=== PATIENT | male | born 1945 | race Two or more races ===

== ENCOUNTER 2017-11-04 10:24 | Inpatient (IN) | payer OTHER ==
[~2017-11-04] VITALS: Ht 167.6 cm; Wt 71.3 kg
[2017-11-04 11:24] LABS: HEMATOCRIT 25.2 % (38.0-50.0); HEMOGLOBIN 8.3 G/DL (12.5-16.6); MCH 29.4 PG (29.0-34.0); MCHC 32.9 G/DL (30.0-36.0); MCV 89.4 FL (86-99); PLATELET COUNT 153 K/uL (156-360); RBC DIS.WIDTH-CV 15.3 % (11.8-14.6); RBC DIS.WIDTH-SD 48.2 % (39-53); RED BLOOD COUNT 2.82 M/uL (4.00-5.50); WHITE BLOOD COUNT 9.9 K/uL (4.1-10.2)
[2017-11-04 11:35] LABS: ALBUMIN 2.7 g/dL (3.2-4.8)
[2017-11-04 11:36] LABS: CHLORIDE 104 mEq/L (99-109); POTASSIUM 3.7 mEq/L (3.7-5.4); SODIUM 135 mEq/L (136-147)
[2017-11-04 11:38] LABS: GLUCOSE 141 mg/dL (70-99); TOTAL PROTEIN 6.2 g/dL (6.4-8.3)
[2017-11-04 11:40] LABS: TOTAL BILIRUBIN 1.1 mg/dL (0.0-1.0)
[2017-11-04 11:41] LABS: ALKALINE PHOSPHATASE 552 IU/L (3-129); CREATININE 1.5 mg/dL (0.6-1.3)
[2017-11-04 11:43] LABS: AST (GOT) 31 IU/L (2-34); UREA NITROGEN (BUN) 48 mg/dL (9-23)
[2017-11-04 11:44] LABS: ALT (GPT) 37 IU/L (3-49); TROP-I INTERPRETATION NEGATIVE; TROPONIN-I 0.03 ng/mL (0.0-0.30)
[2017-11-04 11:48] LABS: GFR ESTIMATE (CALCULATED) 49 mL/min/ (58.99-99999)
[2017-11-04 11:59] LABS: ABS NEUTROPHIL COUNT 9.5; ANISOCYTOSIS 1+; BAND NEUTROPHILS 7.9 % (0-8.0); EOSINOPHIL ABS CT 0.3; EOSINOPHILS 2.6 % (0-5.0); MICROCYTOSIS 1+; MONOCYTES 1.8 % (0-9.0); PLAT.SUFFICIENCY DECREASED; POLYCHROMASIA 1+; SEG.NEUTROPHILS 87.7 % (46.0-76.0); SPHEROCYTES 1+
[2017-11-04] MEDS ORDERED: OXYCODONE HCL10 MG PO (15:19)
[2017-11-04] MEDS ORDERED: GABAPENTIN300 MG PO (15:19)
[2017-11-04 18:06] LABS: BASE EXCESS -11.2 mEq/L (-3 to +3); BICARBONATE 12.7 mEq/L (22-26); CARBOXY HGB 0 % (0-5); COMMENTS - BLOOD GASES A+C+; METHEMOGLOBIN 0 % (0-1.5); O2 FLOW 9 L/MIN; PCO2 22 mm Hg (35-45); PO2 102 mm Hg (80-100); SITE RR; pH 7.37 (7.35-7.45)
[2017-11-04 18:07] LABS: DEVICE NEB TREATMENT
[2017-11-04 18:10] LABS: APPEARANCE TURBID ((CLEAR)); BILIRUBIN NEGATIVE; BLOOD LARGE; GLUCOSE (STRIP) NEGATIVE; KETONES NEGATIVE; LEUKOCYTES LARGE; NITRITE NEGATIVE; PROTEIN (STRIP) 30
[2017-11-04 18:17] LABS: COLOR YELLOW ((YELLOW))
[2017-11-04 18:19] LABS: BACTERIA 2+ /HPF; EPITHELIAL CELLS RARE /HPF; MUCUS NONE SEEN /LPF; UCUL ADDED? YES; WHITE BLOOD CELLS 20-30 /HPF (0-5)
[2017-11-04 21:00] VITALS: BP 82/64
[2017-11-04 21:30] VITALS: BP 83/54
[2017-11-04 22:00] VITALS: BP 95/62
[2017-11-04 22:30] VITALS: BP 100/60
[2017-11-04 23:00] VITALS: BP 90/59
[2017-11-05] VITALS (19 sets, daily range): BP systolic 72–122; BP diastolic 53–94
[2017-11-05 05:22] LABS: HEMATOCRIT 24.1 % (38.0-50.0); HEMOGLOBIN 7.8 G/DL (12.5-16.6); MCH 29.2 PG (29.0-34.0); MCHC 32.4 G/DL (30.0-36.0); MCV 90.3 FL (86-99); PLATELET COUNT 130 K/uL (156-360); RBC DIS.WIDTH-CV 15.6 % (11.8-14.6); RBC DIS.WIDTH-SD 50.3 % (39-53); RED BLOOD COUNT 2.67 M/uL (4.00-5.50); WHITE BLOOD COUNT 9.9 K/uL (4.1-10.2)
[2017-11-05 05:23] LABS: INTER. NORMALIZED RATIO 1.4
[2017-11-05 05:45] LABS: ALBUMIN 2.4 G/DL (3.2-4.8); ALKALINE PHOSPHATASE 426 IU/L (3-129); ALT (GPT) 25 IU/L (3-49); AST (GOT) 18 IU/L (2-34); CHLORIDE 114 MEQ/L (99-109); CREATININE 1.2 MG/DL (0.6-1.3); GFR ESTIMATE (CALCULATED) > 59 mL/min/ (58.99-99999); POTASSIUM 3.5 MEQ/L (3.7-5.4); TOTAL BILIRUBIN 0.6 MG/DL (0.0-1.0); TOTAL PROTEIN 5.5 G/DL (6.4-8.3); UREA NITROGEN (BUN) 40 mg/dL (9-23)
[2017-11-05 05:47] LABS: GLUCOSE 242 mg/dL (70-99); SODIUM 142 MEQ/L (136-147)
[2017-11-06] VITALS (7 sets, daily range): BP systolic 110–128; BP diastolic 55–72
[2017-11-06 05:34] LABS: HEMATOCRIT 23.2 % (38.0-50.0); HEMOGLOBIN 7.5 G/DL (12.5-16.6); MCH 28.7 PG (29.0-34.0); MCHC 32.3 G/DL (30.0-36.0); MCV 88.9 FL (86-99); PLATELET COUNT 161 K/uL (156-360); RBC DIS.WIDTH-CV 15.6 % (11.8-14.6); RBC DIS.WIDTH-SD 48.7 % (39-53); RED BLOOD COUNT 2.61 M/uL (4.00-5.50); WHITE BLOOD COUNT 7.6 K/uL (4.1-10.2)
[2017-11-06 06:04] LABS: CHLORIDE 116 MEQ/L (99-109); CREATININE 0.8 MG/DL (0.6-1.3); GFR ESTIMATE (CALCULATED) > 59 mL/min/ (58.99-99999); GLUCOSE 233 mg/dL (70-99); MAGNESIUM 1.9 mg/dl (1.3-2.7); POTASSIUM 3.3 MEQ/L (3.7-5.4); SODIUM 143 MEQ/L (136-147); UREA NITROGEN (BUN) 28 mg/dL (9-23)
[2017-11-07 06:07] LABS: ALBUMIN 2.6 G/DL (3.2-4.8); ALKALINE PHOSPHATASE 325 IU/L (3-129); ALT (GPT) 24 IU/L (3-49); AST (GOT) 16 IU/L (2-34); CHLORIDE 111 MEQ/L (99-109); GFR ESTIMATE (CALCULATED) > 59 mL/min/ (58.99-99999); GLUCOSE 235 mg/dL (70-99); POTASSIUM 2.9 MEQ/L (3.7-5.4); SODIUM 143 MEQ/L (136-147); TOTAL BILIRUBIN 0.5 MG/DL (0.0-1.0); UREA NITROGEN (BUN) 29 mg/dL (9-23)
[2017-11-07 06:13] LABS: BASOPHIL (%) 0 % (0-1); EOSINOPHIL (%) 0 % (0-5); HEMATOCRIT 25.5 % (38.0-50.0); HEMOGLOBIN 8.5 G/DL (12.5-16.6); IMM.RETIC FRACTION 8.1 % (3-19); IMMATURE GRANULOCYTE (%) 1.9 % (0.0-0.7); LYMPHOCYTE (%) 3.9 % (15-42); LYMPHOCYTE COUNT 0.3 K/uL (1.0-2.8); MCH 29.7 PG (29.0-34.0); MCHC 33.3 G/DL (30.0-36.0); MCV 89.2 FL (86-99); MONOCYTE (%) 4.3 % (3-12); MONOCYTE COUNT 0.3 K/uL (0-0.8); NEUTROPHIL (%) 89.9 % (45-76); NEUTROPHIL COUNT 6.2 K/uL (1.8-6.4); NRBC (%) 0.6 /100 WBC (0-0); PLATELET COUNT 159 K/uL (156-360); RBC DIS.WIDTH-CV 15.4 % (11.8-14.6); RBC DIS.WIDTH-SD 48.3 % (39-53); RED BLOOD COUNT 2.86 M/uL (4.00-5.50); RETIC HGB EQUIVALENT 27.1 (28-36); RETICULOCYTE COUNT 1.5 % (0.5-1.8); WHITE BLOOD COUNT 6.9 K/uL (4.1-10.2)
[2017-11-07 07:56] LABS: FOLIC ACID (FOLATE) 16.5 NG/ML (5.0-22.0)
[2017-11-07 08:59] VITALS: BP 115/66
[2017-11-07 11:39] VITALS: BP 131/75
[2017-11-07 12:15] LABS: HEMOGLOBIN A1c (GLYCOHEMOGLOB) 6.7 % (Below 5.7)
[2017-11-07 15:42] VITALS: BP 124/69
[2017-11-07 20:13] VITALS: BP 136/71
[2017-11-08] VITALS: BP 129/74
[2017-11-08 04:00] VITALS: BP 128/73
[2017-11-08 07:54] VITALS: BP 11/63
[2017-11-08 09:52] LABS: HEMATOCRIT 28.5 % (38.0-50.0); HEMOGLOBIN 9.4 G/DL (12.5-16.6); MCH 29.2 PG (29.0-34.0); MCV 88.5 FL (86-99); PLATELET COUNT 204 K/uL (156-360); RBC DIS.WIDTH-CV 15.3 % (11.8-14.6); RBC DIS.WIDTH-SD 47.8 % (39-53); RED BLOOD COUNT 3.22 M/uL (4.00-5.50); WHITE BLOOD COUNT 9.9 K/uL (4.1-10.2)
[2017-11-08 10:21] LABS: ALBUMIN 2.7 G/DL (3.2-4.8); ALKALINE PHOSPHATASE 292 IU/L (3-129); ALT (GPT) 54 IU/L (3-49); AST (GOT) 30 IU/L (2-34); CHLORIDE 109 MEQ/L (99-109); CREATININE 0.7 MG/DL (0.6-1.3); GFR ESTIMATE (CALCULATED) > 59 mL/min/ (58.99-99999); GLUCOSE 172 mg/dL (70-99); POTASSIUM 3.2 MEQ/L (3.7-5.4); SODIUM 141 MEQ/L (136-147); TOTAL BILIRUBIN 0.6 MG/DL (0.0-1.0); TOTAL PROTEIN 5.6 G/DL (6.4-8.3); UREA NITROGEN (BUN) 17 mg/dL (9-23)
[2017-11-08] MEDS ORDERED: Chronulac,Cephulac,E PO (10:58)
[2017-11-08] MEDS ORDERED: VENTOLIN HFA18 GM IH (10:58)
[2017-11-08] MEDS ORDERED: PREDNISONE10 MG PO (10:58)
[2017-11-08] MEDS ORDERED: CEFTIN500 MG PO (10:58)
[2017-11-08] MEDS ORDERED: DULERA 100 MCG/13 GM IH (10:58)
== END 2017-11-08 14:30 | disposition home health service (06) | DRG 872 ==
LOC: EME 10:24 → EDOF 18:11 → 5SOUTH 18:11 → 4WEST 18:11 → ENRESERV 18:12 → 4WEST 20:38 → ENRESERV 11-05 14:33 → 5SOUTH 11-05 19:38
PROVIDERS: Emergency Medicine; Hospitalist; Internal Medicine; Internal Medicine Hematology & Oncology; Specialist
DX: A41.9 Sepsis, unspecified organism (principal); N39.0 Urinary tract infection, site not specified; J44.1 Chronic obstructive pulmonary disease with (acute) exacerbation; N17.9 Acute kidney failure, unspecified; E46 Unspecified protein-calorie malnutrition; N13.30 Unspecified hydronephrosis; R18.8 Other ascites; J98.11 Atelectasis; C16.3 Malignant neoplasm of pyloric antrum; C18.0 Malignant neoplasm of cecum; C77.2 Secondary and unspecified malignant neoplasm of intra-abdominal lymph nodes; B96.20 Unspecified Escherichia coli [E. coli] as the cause of diseases classified elsewhere; E11.9 Type 2 diabetes mellitus without complications; E78.5 Hyperlipidemia, unspecified; E87.6 Hypokalemia; I10 Essential (primary) hypertension; D64.9 Anemia, unspecified; D63.8 Anemia in other chronic diseases classified elsewhere; K74.60 Unspecified cirrhosis of liver; I95.9 Hypotension, unspecified; R06.03 Acute respiratory distress; C61 Malignant neoplasm of prostate; Z87.891 Personal history of nicotine dependence; Z68.25 Body mass index [BMI] 25.0-25.9, adult; Z92.21 Personal history of antineoplastic chemotherapy; Z92.3 Personal history of irradiation; Z90.49 Acquired absence of other specified parts of digestive tract; Z79.84 Long term (current) use of oral hypoglycemic drugs
CPT/HCPCS: 36600; 71045; 71275; 74176; 80048; 80053; 81003; 82607; 82746; 82803; 82948; 83036; 83605; 83735; 84484; 85025; 85027; 85046; 85610; 87040; 87077; 87086; 87186; 87502; 87641; 90686; 92610 GN; 93005; 94640; 94640 76; 99202; 99281; 99285; J0456; J0692; J0696; J1100; J1644; J1815; J1885; J2060; J2543; J2920; J2930; J3370; J3480; J7030; J7050; J7120; J7512; S0028